=== PATIENT | female | born 1980 | race Caucasian/White ===

== ENCOUNTER 2017-12-14 06:23 | Day surgery (SDC) | payer BC ==
[2017-12-14] MEDS ORDERED: LIDOCAINE 2% (SDV) 5 ML INJ (08:11)
[2017-12-14] MEDS ORDERED: MIDAZOLAM 1 MG/ML 2 ML INJ (08:11)
[2017-12-14] MEDS ORDERED: PROPOFOL 40 ML (08:11)
== END 2017-12-14 12:20 | disposition home or self-care (01) ==
LOC: GIL 06:23
DX: K29.70 Gastritis, unspecified, without bleeding (principal)
CPT/HCPCS: 43239; 84703; 88305; 88312